=== PATIENT | male | born 1950 | race Caucasian/White ===

== ENCOUNTER 2017-06-22 08:34 | Outpatient (CLI) | payer BC ==
--- NOTE | 2017-06-22 09:43 | Diagnostic Imaging Report ---
Indications:Pain, trauma 5 weeks ago Technique: Three or 4 views of the left elbow Comparison: None Findings: No effusion. No acute fractures. No dislocations. Joint spaces are preserved Impression: Negative
== END 2017-06-22 10:35 | disposition home or self-care (01) ==
LOC: RAD 08:34
DX: M25.522 Pain in left elbow (principal)